=== PATIENT | female | born 1950 | race Caucasian/White ===

== ENCOUNTER 2019-02-21 09:11 | Day surgery (SDC) | payer MEDICARE, BC ==
[2019-02-21] MEDS ORDERED: LIDOCAINE 1% W/EPI 1:200,000 MPF 30ML SQ ONE (10:20)
--- NOTE | 2019-02-22 09:40 | Operative Note ---
DATE OF SURGERY: 02/21/2019 PREOPERATIVE DIAGNOSIS: Presumed foreign body granuloma dorsum of right hand. POSTOPERATIVE DIAGNOSIS: Presumed foreign body granuloma dorsum of right hand. OPERATION: Excision of foreign body granuloma right hand. STAFF SURGEON: Edward Cee MD ANESTHESIA: Local. PREPARATION: Chloraprep. INDIVIDUAL CONSIDERATIONS: None. PROCEDURE: The patient was taken to the operating room and placed supine on the operating room table. Her right hand was prepped and draped in the usual fashion. In the mid hand between the 2nd and 3rd metacarpals, there was a palpable foreign body. I went ahead and infiltrated the skin with 1% lidocaine with epinephrine. I then made about a 2 cm incision through the skin and then bluntly through the subcu. Between the two extensor tendons, there was about a 6-7 mm by 3-4 mm diameter solid white firm object. This was removed. After irrigation, the skin was approximated with 4-0 nylon in a vertical mattress fashion. Sterile dressing was applied. She was taken back to recovery in good condition. There were no complications. I did send the specimen to pathology. LASHAWN
== END 2019-02-21 11:08 | disposition home or self-care (01) ==
LOC: SUR 09:11
PROVIDERS: ATTEND Orthopaedic Surgery
DX: M60.241 Foreign body granuloma of soft tissue, not elsewhere classified, right hand (principal)